=== PATIENT | female | born 1990 | race American Indian/Alaskan Native ===

== ENCOUNTER 2017-10-26 23:18 | Emergency (ER) | payer SELFPAY ==
[2017-10-27 00:24] VITALS: BP 113/69
[2017-10-27 01:03] LABS: Basophils % (Auto) 0.6 % (0.0-1.8); Eosinophils % (Auto) 0.2 % (0.0-4.3); Lymphocytes # (Auto) 1.3 K/mm3 (1.2-5.4); Lymphocytes % (Auto) 25.9 % (13.4-35.0); Mean Corpuscular HGB Conc 28 % (30-34); Monocytes # (Auto) 0.5 K/mm3 (0.0-0.8); Platelet Count 258 K/mm3 (140-440); Red Blood Count 3.79 M/mm3 (3.65-5.03)
[2017-10-27 01:08] LABS: Hemoglobin 6.3 gm/dl (10.1-14.3)
[2017-10-27 01:09] LABS: Hematocrit 22.8 % (30.3-42.9); Mean Corpuscular Hemoglobin 17 pg (28-32); Mean Corpuscular Volume 60 fl (79-97); Red Cell Distribution Width 23.7 % (13.2-15.2)
[2017-10-27 01:14] LABS: Alanine Aminotransferase 8 units/L (7-56); Albumin 3.7 g/dL (3.9-5); BUN/Creatinine Ratio 28; Blood Urea Nitrogen 11 mg/dL (7-17); Calcium 8.4 mg/dL (8.4-10.2); Hemolysis Index 2
[2017-10-27 03:35] LABS: Bacteria,Urine 2+ /HPF (Negative); Bilirubin,Urine NEG (Negative); Blood,Urine NEG (Negative); Color,Urine Yellow (Yellow); Mucus,Urine 3+ /HPF; Nitrite,Urine NEG (Negative)
== END 2017-10-27 05:34 | disposition left against medical advice (07) ==
LOC: ED 23:18
DX: R10.9 Unspecified abdominal pain (principal); Z53.21 Procedure and treatment not carried out due to patient leaving prior to being seen by health care provider
CPT/HCPCS: 36415; 80053; 81001; 84703; 85025

== ENCOUNTER 2018-03-06 18:21 | Outpatient (CLI) | payer MEDICAID ==
[2018-03-06] MEDS ORDERED: LACTATED RINGERS 500 ML IV ONE (18:29)
[2018-03-06 19:16] LABS: Bilirubin,Urine NEG (Negative); Blood,Urine NEG (Negative); Color,Urine Yellow (Yellow); Mucus,Urine 2+ /HPF
[2018-03-06] MEDS: LACTATED RINGERS 1,000 ML IV SCH ×2 (19:30→21:11)
[2018-03-06] MEDS ORDERED: TYLENOL PO ONE (20:30)
[2018-03-06] MEDS ORDERED: BRETHINE SUB-Q ONE (21:44)
[2018-03-06 21:46] VITALS: BP 131/83
== END 2018-03-06 22:00 | disposition home or self-care (01) ==
LOC: TRG 18:21
PROVIDERS: ATTEND Obstetrics & Gynecology
DX: O47.03 False labor before 37 completed weeks of gestation, third trimester (principal); Z3A.28 28 weeks gestation of pregnancy
CPT/HCPCS: 59025; 81001; 96360; 96361; J7120; J3105